=== PATIENT | female | born 1985 | race African-American/Black ===

== ENCOUNTER 2019-01-03 20:15 | Observation (INO) | payer MEDICAID ==
[~2019-01-03 20:15] MED LIST: PREN-129 PO
== END 2019-01-03 21:50 | disposition home or self-care (01) | DRG 566 ==
LOC: LDRP 20:15
PROVIDERS: ADMIT Specialist; ATTEND Specialist
DX: O46.92 Antepartum hemorrhage, unspecified, second trimester (principal); O26.892 Other specified pregnancy related conditions, second trimester; N89.8 Other specified noninflammatory disorders of vagina; R10.2 Pelvic and perineal pain; Z3A.26 26 weeks gestation of pregnancy
CPT/HCPCS: 59025; 81002; 87210; 87491; 87591; G0378

== ENCOUNTER 2019-01-23 13:07 | Observation (INO) | payer MEDICAID | END 2019-01-23 14:35 | disposition home or self-care (01) | DRG 566 | LOC: LDRP 13:07 | PROVIDERS: ADMIT Specialist; ATTEND Specialist | DX: O26.893 Other specified pregnancy related conditions, third trimester (principal); R10.9 Unspecified abdominal pain; Z3A.29 29 weeks gestation of pregnancy | CPT/HCPCS: 59025; 81002; G0378 ==

== ENCOUNTER 2024-10-13 16:19 | Emergency (ER) | payer MEDICAID ==
[~2024-10-13] VITALS: Ht 154.9 cm; Wt 129.0 kg
--- NOTE | 2024-10-13 16:25 | ED.PDOC ---
CARPET INSPECTOR FINISHED HPI Comments 39 y.o female presents to the ED via EMS for a chief complaint of suprapubic pain associated with clear/brown vaginal discharge that started yesterday s/p vaginal ultrasound at [facility]. Patient describes pain as contractions lasting 45 minutes in between and rating a 10/10 on the pain scale. Patient reports 7 week gestation with a RECEIVING ASSOCIATE STORE history of and has not yet seen her CARPET INSPECTOR FINISHED but has been taking her prenatals. Patient denies any vaginal bleeding, clotting, nausea vomiting, recent trauma to pain site, fever or chills. Time Seen by MD: 16:18 Reviewed Notes: Nurses Notes, Survey Operations Director Notes, Medications, Allergies Allergies: Coded Allergies: Sulfa Drugs (Verified Allergy, 10/24/11) Home Meds Reported Medications Vit W/ Ferrous Fumara () Tab, 1 TAB PO DAILY, TAB 10/08/13 Information Source: Patient, Emergency Med Personnel Mode of Arrival: EMS Timing: Days (1) Severity: Moderate Vaginal Discharge: None Vaginal Lesions: None Vaginal Mass: None Onset Of Mass/Bleeding: Spontaneous Sexual Activity: Last Consensual [place]: Unknown Control: None History of: Current Associated Signs and Symptoms: Vaginal Discharge, Abdominal Pain, Sharp Past Medical History PAST MEDICAL HISTORY: Denies Surgical History: (4) RECEIVING ASSOCIATE STORE History: No Pertinent RECEIVING ASSOCIATE STORE History 6 Para 4 Family History Family History: No family hx of DM, No family hx of HTN Social History Smoker: Non-Smoker Alcohol: Denies ETOH Use Drugs: Denies Drug Use Lives In: Home Constitutional: denies: chills, diaphoresis, fatigue, fever, malaise, sweats, weakness, others EENTM: denies: blurred vision, double vision, ear bleeding, ear discharge, ear drainage, ear pain, ear ringing, eye pain, eye redness, hearing loss, mouth pain, mouth swelling, nasal discharge, nose bleeding, nose congestion, nose pain, photophobia, tearing, throat pain, throat swelling, voice changes, others Respiratory: denies: cough, hemoptysis, orthopnea, SOB at rest, shortness of breath, SOB with excertion, stridor, wheezing, others Cardiovascular: denies: chest pain, dizzy spells, diaphoresis, Dyspnea on exertion, edema, irregular heart beat, left arm pain, lightheadedness, palpitations, PND, syncope, others Gastrointestinal: reports: abdominal pain; denies: abdomen distended, blood streaked bowels, constipated, diarrhea, dysphagia, difficulty swallowing, h ematemesis, melena, nausea, poor appetite, poor fluid intake, rectal bleeding, rectal pain, vomiting, others Genitourinary: reports: , vagina discharge; denies: abnormal vagina bleeding, burning, dyspareunia, dysuria, flank pain, frequency, hematuria, incontinence, pain, urgency, others Neurological: denies: dizziness, fainting, headache, left sided numbness, left sided weakness, numbness, paresthesia, pre-existing deficit, right sided numbness, right sided weakness, seizure, speech problems, tingling, tremors, weakness, others Musculoskeletal: denies: back pain, gout, joint pain, joint swelling, muscle pain, muscle stiffness, neck pain, others Integumetry: denies: bruises, change in color, change in hair/nails, dryness, laceration, lesions, lumps, rash, wounds, others Allergic/Immunocompromised: denies: Difficulty Healing, Frequent Infections, Hives, Itching, others Hematologic/Lymphatic: denies: anemia, blood clots, easy bleeding, easy bruising, swollen glands, others Endocrine: denies: excessive hunger, excessive sweating, excessive thirst, excessive urination, flushing, intolerance to cold, intolerance to heat, unexplained weight gain, unexplained weight loss, others Psychiatric: denies: anxiety, bipolar disorder, depression, hopeless, panic disorder, schizophrenia, sleepless, suicidal, others All Other Systems: Reviewed and Negative Physical Exam General Appearance: Moderate Distress, Obese HEENT: Normal ENT Inspection, Pharynx Normal, TMs Normal Neck: Full Range of Motion, Non-Tender, Normal, Normal Inspection Respiratory: Chest Non-Tender, Lungs Clear, No Accessory Muscle Use, No Respiratory Distress, Normal Breath Sounds Cardiovascular: No Edema, No JVD, No Murmur, No Gallop, Normal Peripheral Pulses, Regular Rate/Rhythm Breast Exam: Deferred Gastrointestinal: No Organomegaly, No Pulsatile Mass, Normal Bowel Sounds, Soft, Suprapubic, Tenderness Genitalia: Deferred Pelvic: Deferred Rectal: Deferred Extremities: No calf tenderness, Normal capillary refill, Normal inspection, Normal range of motion, Non-tender, No pedal edema Musculoskeletal : Apperance: Normal Neurologic: Alert, cost specialist II-XII nml as Tested, No Motor Deficits, Normal Affect, Normal Mood, No Sensory Deficits Cerebellar Function: Normal Reflexes: Normal Skin: Dry, Normal Color, Warm Lymphatic: No Adenopathy Was a procedure done? Was a procedure done?: No Differential Diagnosis (RECEIVING ASSOCIATE STORE) Vaginal Bleeding: - Complete, - Incomplete, - Threatened, N/A Vaginal Discharge: UTI, Vaginitis - Bacterial Comments Threatened X-Ray, Labs, Meds, VS Vital Signs Date Time Temp Pulse Resp B/P (MAP) Pulse Ox O2 Delivery O2 Flow Rate FiO2 10/13/24 18:37 73 16 152/112 (125) 100 10/13/24 17:46 100 16 149/105 10/13/24 17:44 71 14 149/105 10/13/24 17:10 76 16 99 Nasal Cannula* 2 28 10/13/24 17:06 80 13 149/112 10/13/24 17:00 86 16 149/112 (124) 100 10/13/24 16:45 98.0 86 20 138/90 (106) 99 Lab Test 10/13/24 18:25 10/13/24 17:54 10/13/24 16:54 Range/Units Urine Color Light-red Yellow Urine Clarity Turbid H Clear Urine pH 6.5 5.0-9.0 Urine Specific [place] 1.012 1.001-1.035 Urine Protein 1+ H Negative Urine Ketones 2+ H Negative Urine Blood 3+ H Negative /uL Urine Nitrite Negative Negative Urine Bilirubin Negative Negative Urine Urobilinogen Normal Negative mg/dL Urine Leukocyte Esterase 1+ Negative /uL Urine RBC 3516 0 - 4 /hpf Urine Microscopic WBC 90 H 0-5 /HPF Urine Squamous Epithelial Cells None seen <5 /hpf Urine Bacteria Few H None Seen /hpf Urine Mucus Few None Seen Urine Glucose Normal Normal mg/dL Sodium Level 137 136-145 mmol/L Potassium Level 3.8 3.5-5.1 mmol/L Chloride Level 106 98-107 mmol/L Carbon Dioxide Level 22 20-31 mmol/L Anion Gap 9 5-15 Blood Urea Nitrogen < 5 L 9-23 mg/dL Creatinine 0.61 0.550-1.02 mg/dL Glomerular Filtration Rate Calc 118 >90 mL/min BUN/Creatinine Ratio 8.2 L 10.0-20.0 Serum Glucose 88 74-106 mg/dL Calcium Level 9.2 8.7-10.4 mg/dL White Blood Count 9.8 4.4-10.8 10^3/uL Red Blood Count 4.82 4.0-5.20 10^6/uL Hemoglobin 13.2 12.2-16.2 g/dL Hematocrit 39.8 36.0-46.0 % Mean Corpuscular Volume 82.4 80.0-100.0 fL Mean Corpuscular Hemoglobin 27.4 L 28.0-32.0 pg Mean Corpuscular Hemoglobin Concent 33.2 32.0-36.0 g/dL Red Cell Distribution Width 16.6 H 11.8-14.3 % Platelet Count 277 140-450 10^3/uL Mean Platelet Volume 9.1 6.9-10.8 fL Neutrophils (%) (Auto) 61.0 37.0-80.0 % Lymphocytes (%) (Auto) 32.5 10.0-50.0 % Monocytes (%) (Auto) 5.2 0.0-12.0 % Eosinophils (%) (Auto) 0.8 0.0-7.0 % Basophils (%) (Auto) 0.5 0.0-2.0 % Neutrophils # (Auto) 6.0 1.6-8.6 10 ^3/uL Lymphocytes # (Auto) 3.2 0.4-5.4 10 ^3/uL Monocytes # (Auto) 0.5 0-1.3 10 ^3/uL Eosinophils # (Auto) 0.1 0-0.8 10 ^3/uL Basophils # (Auto) 0.1 0-0.2 10 ^3/uL Nucleated Red Blood Cells 0.3 % Beta HCG, Quantitative 72115.2 H 1.5-4.2 mIU/mL Current Medications Medications (Trade) Dose Ordered Sig/Chin Route Start Time Stop Time Status Last Admin Sodium Chloride 1,000 ml @ 1,000 mls/hr Q1H ONCE IVB 10/13/24 16:30 10/13/24 17:29 DC 10/13/24 16:30 Ondansetron HCl (Zofran) 4 mg ONCE ONCE IV 10/13/24 16:30 10/13/24 16:31 DC 10/13/24 17:05 Morphine Sulfate 4 mg ONCE ONCE IV 10/13/24 16:30 10/13/24 16:31 DC 10/13/24 17:06 Morphine Sulfate 4 mg ONCE ONCE IV 10/13/24 17:45 10/13/24 17:46 DC 10/13/24 17:44 The patient's CBC [place] [address] The urine test is positive for a UTI The patient will be given Rocephin 1 g IV piggyback The patient was having a significant amount of cramping and was given morphine 4 mg IV push for the pain The patient was also given Zofran 4 mg IV push for the nausea We did have to repeat the patient's pain with morphine IV push The patient was given a 1 L bolus of normal saline At this time, the patient was resting more comfortably We did an ultrasound of the pelvis which shows: IMPRESSION: 1. Twin intrauterine with a single gestational sac and yolk sac. 2. heart tones detected in baby a at a rate of 41 beats per minute. No heart tones detected in baby B. This is an indeterminate finding at this time. Follow-up by trending beta HCGs and follow-up ultrasound in 7-10 days We did speak with Dr. Bender and at this time the patient will be observed here in the emergency department's The patient will be NPO after midnight The OBGYN will consult and determine if the patient will receive a D&C a repeat ultrasound The patient will be signed out to Dr. Burgos. We have discussed the findings with the patient and she is in agreement with the management. Currently the patient was only having a mild amount of pain Images Reviewed?: Images reviewed and evaluated by me Time of 1ST Reevaluation: 16:22 Reevaluation 1ST: Unchanged Patient Education/Counseling: Diagnosis, Treatment, Prognosis Family Education/Counseling: No Family Present Departure 1 Departure Time of Disposition: 20:24 Impression: Primary Impression: demise Additional Impression: Acute abdominal pain Disposition: 30 STILL A PATIENT Condition: Fair Critical Care Note Critical Care Time?: No Stability Stability form required: Yes Unstable for transfer: ED Physician Assesment (Clinical assesment) I personally scribed for LEANN PATEL MD ([email or web address]) on 10/13/24 at 16:25. Elec tronically submitted by Lucretia Gutierrez ([facility]). LEANN PATEL MD Oct 13, 2024 16:25
[2024-10-13] MEDS: SODIUM CHLORIDE 0.9% 1,000 ML IVB ONE (16:30)
[2024-10-13] MEDS: ONDANSETRON HCL 4 MG/2 ML VIAL IV ONE (17:05)
[2024-10-13] MEDS: MORPHINE SULFATE 4 MG/ML SYR/VIAL IV ONE ×2 (17:06→17:44)
[2024-10-13 17:10] VITALS: PULSE 76; RESP 16; O2SAT 99
[2024-10-13 17:34] LABS: Basophils # (auto) 0.1 10 ^3/uL (0-0.2); Basophils % (auto) 0.5 % (0.0-2.0); Eosinophils # (auto) 0.1 10 ^3/uL (0-0.8); Eosinophils % (auto) 0.8 % (0.0-7.0); Hematocrit 39.8 % (36.0-46.0); Hemoglobin 13.2 g/dL (12.2-16.2); Lymphocytes # (auto) 3.2 10 ^3/uL (0.4-5.4); Lymphocytes % (auto) 32.5 % (10.0-50.0); Mean Corpuscular Hemoglobin 27.4 pg (28.0-32.0); Mean Corpuscular Hgb Conc. 33.2 g/dL (32.0-36.0); Mean Corpuscular Volume 82.4 fL (80.0-100.0); Monocytes # (auto) 0.5 10 ^3/uL (0-1.3); Monocytes % (auto) 5.2 % (0.0-12.0); Nucleated Red Blood Cells % 0.3 %; Platelet Count (auto) 277 10^3/uL (140-450); Red Blood Cells 4.82 10^6/uL (4.0-5.20); Red Cell Distribution Width 16.6 % (11.8-14.3); White Blood Cell 9.8 10^3/uL (4.4-10.8)
[2024-10-13 18:44] LABS: Chloride 106 mmol/L (98-107); Potassium 3.8 mmol/L (3.5-5.1); Sodium 137 mmol/L (136-145)
[2024-10-13 18:45] LABS: Anion Gap 9 (5-15); Carbon Dioxide 22 mmol/L (20-31)
[2024-10-13 18:46] LABS: Calcium 9.2 mg/dL (8.7-10.4)
[2024-10-13 18:50] LABS: Glucose 88 mg/dL (74-106)
[2024-10-13 18:55] VITALS: BP 130/80; RESP 14
[2024-10-13 19:07] LABS: BUN/Creatinine Ratio 8.2 (10.0-20.0); Blood Urea Nitrogen < 5 mg/dL (9-23)
[2024-10-13 19:09] LABS: Urine Bacteria FEW /hpf (None Seen); Urine Blood 3+ /uL (Negative); Urine Clarity Turbid (Clear); Urine Color Light-Red (Yellow); Urine Mucus FEW (None Seen); Urine Protein, UAD 1+ (Negative); Urine Specific Gravity 1.012 (1.001-1.035); Urine Squamous Epithelial Cell None Seen /hpf (<5); Urine Urobilinogen Normal (Negative); Urine WBC 90 /HPF (0-5); Urine pH 6.5 (5.0-9.0)
[2024-10-13 19:25] VITALS: O2SAT 99
--- NOTE | 2024-10-13 19:32 | DVH ---
OBSTETRIC ULTRASOUND PRIOR TO 14 WEEKS CLINICAL INDICATION: pain and discharge TECHNIQUE: Multiple grayscale ultrasound images were obtained of the pelvis via transabdominal and tr ansvaginal approach for obstetric evaluation. Limited color Doppler and spectral Doppler acquisitions were also obtained. COMPARISON: None FINDINGS: Uterus: 12.8 x 5.3 x 5.9 cm. Twin intrauterine gestational sac is visualized. Single gestational sac and yolk sac Baby A A pole is visualized measuring 0.97 cm compatible with an estimated gestational age of 7 weeks , 0 days. cardiac activity is present with heart rate of 41 beats per minute. Baby B A pole is visualized measuring 1.05 cm compatible with an estimated gestational age of 7 weeks , 1 days. No Heart tones present in baby B Right adnexa: right ovary is not visualized. No right adnexal mass seen. Left adnexa: left ovary is not visualized. No left adnexal mass seen. Other: Simple fluid in the cul-de-sac. IMPRESSION: 1. Twin intrauterine with a single gestational sac and yolk sac. 2. heart tones detected in baby a at a rate of 41 beats per minute. No heart tones detect ed in baby B. This is an indeterminate finding at this time. Follow-up by trending beta HCGs and fol low-up ultrasound in 7-10 days
[2024-10-13 20:00] VITALS: PULSE 73
[2024-10-13 21:03] LABS: INR 1.01 (0.9-1.15); Partial Thromboplastin Time 27.9 SEC (24.5-34.5); Prothrombin Time 10.7 sec (9.3-11.8)
[2024-10-13] MEDS: LACT. RINGERS/OXYTOCIN 20UNITS 1,000 ML IV ONE (21:15)
[2024-10-14] MEDS ORDERED: HYDR-4902 PO (19:56)
[2024-10-14] MEDS ORDERED: ZOFR4T PO (19:56)
[2024-10-14] MEDS ORDERED: MISO200T67 VG (19:56)
--- NOTE | 2024-10-14 22:07 | DVHINCON2 ---
DATE OF CONSULTATION: 10/13/2024 REASON FOR CONSULTATION: Possible miscarriage. HISTORY OF PRESENT ILLNESS: The patient is a 39-year-old 6, para 5, being seen in ER for vaginal bleeding. The patient states she was told she has twin and had a vaginal ultrasound at [place], at which point she started bleeding. She believes her one twin was lost due to transvaginal ultrasound, she had an ultrasound here that reveals a fetus with heart of 41, patient had some bleeding; however, stopped having bleeding. I was called and asked to evaluate her for D and C. Upon my arrival to the hospital, I spoke to the patient at which point, the patient stated that she was told that the heart may increase and that she needs a scan in 1 week and she is not sure if she wants to have a D and C. The operating crew was called in. They were all in recovery room waiting for the patient. I spoke to the patient in length and gave her all her options due to the fact that she was not actively bleeding. I informed her that she can wait if she is not sure and we can rescan her in a.m. tomorrow or she can always return if there is any bleeding. Her pain had subsided and the patient was adamant that she wants to give her a chance. She had previous x 5, and at this point she requested not to undergo any D and C. The patient will return if any heavy bleeding occurs and [facility] as [facility] for second opinion. She expressed much dislike for [place]. Upon her discharge, the patient was completely stable. Operating room crew left and case was canceled. DO ODETTE Nguyen/PORTIA TID: [id number] RECEIPT: [id number]
== END 2024-10-13 23:30 | disposition home or self-care (01) ==
LOC: ER 16:19 → EDBD 16:19 → ER 23:30
DX: O36.4XX0 Maternal care for intrauterine death, not applicable or unspecified (principal); R10.2 Pelvic and perineal pain; Z3A.01 Less than 8 weeks gestation of pregnancy; Z88.2 Allergy status to sulfonamides; Z79.899 Other long term (current) drug therapy; Z79.01 Long term (current) use of anticoagulants
CPT/HCPCS: 36415; 76801; 76817; 80048; 81001; 84702; 85025; 85610; 85730; 86850; 86900; 86901; 96361; 96374; 96375; 96376; 99285; J2270; J2405; J2590; J7030

== ENCOUNTER 2024-10-14 17:01 | Emergency (ER) | payer MEDICAID ==
[~2024-10-14] VITALS: Ht 154.9 cm; Wt 127.0 kg
[2024-10-14] MEDS: HYDROmorphone HCL 2 MG/ML VL/or syr IM ONE (18:29)
--- NOTE | 2024-10-14 18:34 | ED.PDOC ---
ENGRAVER RUBBER HPI Comments 39 y.o morbidly obese female presents to the ED for a chief complaint of vaginal bleeding associated with suprapubic pain that started a couple hours ago. Patient is about 7 weeks gestation with SPECIAL PROCEDURES TECH HX of . Patient was seen for this complaint yesterday at this ED, spoke with ENGRAVER RUBBER Dr. Alonzo s/p ultrasound which found twin heart tone but one had no heart rate while the other's was at 41. Dr. Alonzo offered DNC but patient refused and wanted to wait until surgery. Patient states she went to [facility] today for ultrasound which found not heart tone and is here for the DNC procedure. She reports when discharged yesterday, bleeding and pain had stop but started again earlier today. Patient was mildly histrionic at time of evaluation. Chief Complaint: Vaginal Bleed Time Seen by MD: 17:56 Reviewed Notes: Nurses Notes, Medications, Allergies Allergies: Coded Allergies: Sulfa Drugs (Verified Allergy, Unknown, 10/13/24) Home Meds Reported Medications Vit W/ Ferrous Fumara () Tab, 1 TAB PO DAILY, TAB 10/08/13 Information Source: Patient Mode of Arrival: Ambulatory Timing: Hours Severity: Moderate Vaginal Discharge: None Vaginal Lesions: None Bleeding Quality: Bright Red, Clotted Vaginal Mass: None Onset Of Mass/Bleeding: Spontaneous Sexual Activity: Last Consensual [place]: Unknown Control: None History of: Current Associated Signs and Symptoms: Vaginal Bleeding, Abdominal Pain, Sharp Past Medical History PAST MEDICAL HISTORY: Denies Past Medical History (Other): Patient is currently approximately six weeks with a spontaneous yesterday have one twin and probable demise of the 2nd it fetus. Surgical History: SPECIAL PROCEDURES TECH History: No Pertinent SPECIAL PROCEDURES TECH History Family History Family History: No family hx of DM, No family hx of HTN Social History Smoker: Non-Smoker Alcohol: Denies ETOH Use Drugs: Denies Drug Use Lives In: Home Constitutional: denies: chills, diaphoresis, fatigue, fever, malaise, sweats, weakness, others EENTM: denies: blurred vision, double vision, ear bleeding, ear discharge, ear drainage, ear pain, ear ringing, eye pain, eye redness, hearing loss, mouth pain, mouth swelling, nasal discharge, nose bleeding, nose congestion, nose pain, photophobia, tearing, throat pain, throat swelling, voice changes, others Respiratory: denies: cough, hemoptysis, orthopnea, SOB at rest, shortness of breath, SOB with excertion, stridor, wheezing, others Cardiovascular: denies: chest pain, dizzy spells, diaphoresis, Dyspnea on exertion, edema, irregular heart beat, left arm pain, lightheadedness, palpitations, PND, syncope, others Gastrointestinal: reports: abdominal pain; denies: abdomen distended, blood streaked bowels, constipated, diarrhea, dysphagia, difficulty swallowing, hematemesis, melena, nausea, poor appetite, poor fluid intake, rectal bleeding, rectal pain, vomiting, others Genitourinary: reports: abnormal vagina bleeding, pain, ; denies: burning, dyspareunia, dysuria, flank pain, frequency, hematuria, incontinence, vagina discharge, urgency, others Neurological: denies: dizziness, fainting, headache, left sided numbness, left sided weakness, numbness, paresthesia, pre-existing deficit, right sided numbness, right sided weakness, seizure, speech problems, tingling, tremors, weakness, others Musculoskeletal: denies: back pain, gout, joint pain, joint swelling, muscle pain, muscle stiffness, neck pain, others Integumetry: denies: bruises, change in color, change in hair/nails, dryness, laceration, lesions, lumps, rash, wounds, others Allergic/Immunocompromised: denies: Difficulty Healing, Frequent Infections, Hives, Itching, others Hematologic/Lymphatic: denies: anemia, blood clots, easy bleeding, easy bruising, swollen glands, others Endocrine: denies: excessive hunger, excessive sweating, excessive thirst, excessive urination, flushing, intolerance to cold, intolerance to heat, unexplained weight gain, unexplained weight loss, others Psychiatric: denies: anxiety, bipolar disorder, depression, hopeless, panic disorder, schizophrenia, sleepless, suicidal, others All Other Systems: Reviewed and Negative Physical Exam General Appearance: Moderate Distress (Due to abdominal pain concerns.), Obese HEENT: Normal ENT Inspection, Pharynx Normal, TMs Normal Neck: Full Range of Motion, Non-Tender, Normal, Normal Inspection Respiratory: Chest Non-Tender, Lungs Clear, No Accessory Muscle Use, No Respiratory Distress, Normal Breath Sounds Cardiovascular: No Edema, No JVD, No Murmur, No Gallop, Normal Peripheral Pulses, Regular Rate/Rhythm Breast Exam: Deferred Gastrointestinal: Other (Diffuse bilateral lower abdominal/pelvic tenderness to palpation. Difficult to assess due to body habitus and pain. No signs of trauma.) Genitalia: Deferred Pelvic: Vaginal Bleeding Rectal: Deferred Extremities: No calf tenderness, Normal capillary refill, Normal inspection, Normal range of motion, Non-tender Musculoskeletal : Apperance: Normal Neurologic: Alert, No Motor Deficits, Normal Affect, Normal Mood, No Sensory Deficits Cerebellar Function: NOT DONE Reflexes: NOT DONE Skin: Dry, Normal Color, Warm Lymphatic: No Adenopathy Was a procedure done? Was a procedure done?: No Differential Diagnosis (SPECIAL PROCEDURES TECH) Vaginal Bleeding: - Complete, - Incomplete, - Inevitable, - Missed, - Threatened, Abruptio Placentae X-Ray, Labs, Meds, VS Vital Signs Date Time Temp Pulse Resp B/P (MAP) Pulse Ox O2 Delivery O2 Flow Rate FiO2 10/14/24 18:29 104 20 166/103 10/14/24 17:57 98.3 85 16 149/98 (115) 98 Current Medications Medications (Trade) Dose Ordered Sig/Chin Route Start Time Stop Time Status Last Admin Hydromorphone HCl (Dilaudid Injection) 0.5 mg ONCE ONCE IM 10/14/24 18:00 10/14/24 18:01 DC 10/14/24 18:29 X-Ray, Labs, Meds, VS Comment Transvaginal ultrasound confirmed demise. Consulted with doctors and on numerous occasions throughout the patient's visit today and informed her of the demise. She advise single patient home on Cytotec with a repeat in three days as needed. Patient should follow up with her airline captain for continued evaluation. Time of 1ST Reevaluation: 19:50 Reevaluation 1ST: Improved Consultation: PCP, infrastructure project manager Patient Education/Counseling: Diagnosis, Treatment, Prognosis Family Education/Counseling: Diagnosis, Treatment, No Family Present Departure 1 Departure Time of Disposition: 19:50 Impression: Primary Impression: Miscarriage Disposition: HOME / SELF CARE / HOMELESS Condition: Stable Additional Instructions: Advised patient utilize medication as directed. If symptoms continue for longer than three days, patient can repeat the treatment. Patient should follow up with primary care airline captain for conversations related to today's events with in the next few days. e-Prescriptions Hydrocodone-Acetaminophen (Hydrocodone Bitartrate/AC 5-325 mg) 1 Tab Tab 1 TAB PO Q6HP PRN, #12 TAB Prov: EDUARD HURST PAC 10/14/24 Ondansetron Odt 4MG Tab (ZOFRAN PO) 4 Mg Tb 4 MG PO Q6HP PRN, #15 TAB ODT TAB-DISSOLVE IN MOUTH, THEN SWALLOW Prov: EDUARD HURST PAC 10/14/24 Misoprostol (Cytotec) 200 Mcg Tab 4 TAB VG ONCE, #4 TAB 1 Refill All four pill should be inserted transvaginally. May repeat in three days as needed. Prov: EDUARD HURST PAC 10/14/24 Discharged With: Self, Friend Critical Care Note Critical Care Time?: No Stability Stability form required: No I personally scribed for EDUARD HURST PAC ([email or web address]) on 10/14/24 at 18:34. Electronically submitted by Lucretia Gutierrez ([facility]). EDUARD HURST PAC Oct 14, 2024 18:34
--- NOTE | 2024-10-14 19:44 | DVH ---
EXAM: US OB TRANS VAGINAL US CLINICAL HISTORY: Patient had a miscarriage yesterday COMPARISON: None TECHNIQUE: Grayscale, color-flow Doppler, and spectral Doppler ultrasound of the pelvis is performed by transvaginal technique. Findings/Impression: Single intrauterine with gestational sac and embryo visualized. No heart tones appreciated. Findings are concerning for a failed .
[2024-10-14] MEDS ORDERED: HYDR-4902 PO (19:56)
[2024-10-14] MEDS ORDERED: ZOFR4T PO (19:56)
[2024-10-14] MEDS ORDERED: MISO200T67 VG (19:56)
[2024-10-14 20:05] VITALS: BP 155/93; PULSE 104; RESP 18; TEMP 98.2; O2SAT 99
== END 2024-10-14 20:21 | disposition home or self-care (01) ==
LOC: ER 17:04
DX: O02.1 Missed abortion (principal); Z88.2 Allergy status to sulfonamides; Z98.890 Other specified postprocedural states
CPT/HCPCS: 76817; 96372; 99285; J1171